=== PATIENT | female | born 1995 | race Caucasian/White ===

== ENCOUNTER 2018-11-16 02:33 | Emergency (ER) | payer OTHER, SELFPAY ==
[2018-11-16 02:54] VITALS: BP 119/74; PULSE 109; RESP 16; TEMP 36.7; O2SAT 100
--- NOTE | 2018-11-16 02:58 | ED.NAVMDI ---
HPI - Nausea/Vomiting/Diarrhea General Chief complaint: Nausea/Vomiting/Diarrhea Stated complaint: Vomiting Time Seen by Provider: 11/16/18 02:40 Source: patient Mode of arrival: ambulatory Limitations: no limitations History of Present Illness HPI Narrative: The patient has a breast-fed baby. Both became ill about 8:00 p.m. tonight. The patient developed nausea and vomiting, vomiting so frequently that she cannot tell me how often she has vomited. Her baby started vomiting about the same time. Her is here, with mild nausea but no vomiting. They all ate the same, nothing that seems have obviously made people sick. The patient has had no fever chills, she has had no diarrhea. She has mild abdominal discomfort. There is no associated back pain or dysuria. She has no ENT complaints. She has no cough or congestion. She is generally healthy. Related Data Home Medications Medication Instructions Recorded Confirmed LEVOTHYROXINE SODIUM (SYNTHROID) 0.125 mg PO QDAY #0 11/12/12 cetirizine 10 mg tablet 10 mg PO DAILY 03/17/18 03/17/18 Previous Rx's Medication Instructions Recorded [ Rx 1] 1 tab PO QDAY #0 12/12/17 ondansetron 4 mg PO Q4H #14 tab 11/16/18 Allergies Allergy/AdvReac Type Severity Reaction Status Date / Time amoxicillin [AMOXICILLIN] Allergy Unknown Unverified 01/28/18 12:14 clavulanic acid Allergy Unknown Unverified 01/28/18 12:14 [From AUGMENTIN] erythromycin base Allergy Unknown Unverified 01/28/18 12:14 [ERYTHROMYCIN BASE] iodine [IODINE] Allergy Unknown Unverified 01/28/18 12:14 Review of Systems Review of Systems ROS Unobtainable: All systems reviewed & are unremarkable except as noted in HPI and below Constitutional Denies chills, Denies fever(s), Denies lethargy and Denies weakness ENT Ears, Nose, Mouth, and Throat: Denies neck pain and Denies sore throat Cardiovascular Denies chest pain, Denies lightheadedness, Denies palpitations, Denies dyspnea and Denies dyspnea on exertion Respiratory Denies cough, Denies dyspnea, Denies dyspnea on exertion and Denies wheezing Gastrointestinal Gastrointestinal: Reports abdominal pain (Minimal), Denies diarrhea, Reports nausea and Reports vomiting Genitourinary Denies dysuria and Reports other (She is not ) Musculoskeletal Denies back pain and Denies neck pain Integumentary/Breasts Denies pruritus, Denies erythema and Denies rash Neurologic Denies weakness Psychiatric Denies anxiety and Denies depression Endocrine Denies palpitations Allergic/Immunologic Denies wheezing PFSH Medical History Hypothyroidism (Acute) Surgical History Status post tonsillectomy and adenoidectomy Social History Smoking Status: Never smoker Exam Initial Vital Signs Initial Vital Signs: Vital Signs Temperature 98.0 F 11/16/18 02:54 Pulse Rate 109 H 11/16/18 02:54 Respiratory Rate 16 11/16/18 02:54 Blood Pressure 119/74 11/16/18 02:54 Pulse Oximetry 100 11/16/18 02:54 Const General: cooperative and well developed Nutritional Appearance: well nourished Orientation: alert, awake, oriented x3 and not confused HENNM Mouth: oral mucosae normal, lip normal and tongue normal Eyes Conjunctivae: conjunctivae normal Neck Neck: full ROM and No lymphadenopathy Chest Chest: normal inspection of the chest Resp Effort & Inspection: normal respiratory effort, able to speak in complete sentences, no respiratory distress and no use of accessory muscles Auscultation: clear to auscultation bilaterally, no rales, no rhonchi and no wheezes Cardio Rate: regular rate Rhythm: regular rhythm Heart Sounds: no click, no gallops, no murmurs and no rubs Pulses: normal peripheral pulses GI Inspection: non-distended Palpation: soft, no hepatosplenomegaly, No guarding, No pulsatile mass and No tender Auscultation: normal bowel sounds Back/Spine/Pelvis Back: No CVA tenderness Skin General: no rashes or lesions noted Neuro General: alert, oriented x3, gait normal and no focal motor deficits Speech: speech normal Extrem General: full ROM, no clubbing, cyanosis or edema, no pedal edema and no calf tenderness Course Orders Ordered: Discontinued Medications Acetaminophen (Tylenol) 650 mg PO NOW ONE Stop: 11/16/18 03:00 Last Admin: 11/16/18 03:25 Dose: 650 mg Ondansetron HCl (Zofran Odt) 4 mg SL NOW ONE Stop: 11/16/18 02:58 Last Admin: 11/16/18 03:00 Dose: 4 mg Vital Signs - 8 hr 11/16/18 02:54 11/16/18 03:25 Temperature 98.0 F 98.0 F Pulse Rate 109 H Respiratory Rate 16 Blood Pressure 119/74 Pulse Oximetry 100 Discharge Plan Departure Patient Disposition: Home Clinical Impression: Vomiting Instructions: DI for Vomiting -- Adult Activity Restrictions/Additional Instructions: Zofran every 4 hr as needed for nausea Cp small amounts of fluids, increase her fluid intake as tolerated. Resume a normal diet when tolerated. Return here as necessary. Prescriptions: New ondansetron 4 mg tablet,disintegrating 4 mg PO Q4H Qty: 14 RF: 0 No Action cetirizine [Zyrtec] 10 mg tablet 10 mg PO DAILY RF: 0 LEVOTHYROXINE SODIUM (SYNTHROID) 0.125 mg PO QDAY Qty: 0 RF: 0 [ Rx 1] 1 tab PO QDAY Qty: 0 RF: 0
[2018-11-16] MEDS: ONDANSETRON 4 MG ODT SL (03:00)
[2018-11-16 03:25] VITALS: TEMP 36.7
[2018-11-16] MEDS: ACETAMINOPHEN 325 MG TABLET 650 MG PO (03:25)
[2018-11-16 04:30] VITALS: BP 104/69; PULSE 98; RESP 16; TEMP 36.8; O2SAT 98
== END 2018-11-16 04:25 | disposition home or self-care (01) ==
PROVIDERS: Emergency Provider Emergency Medicine; PCP Family Medicine
DX: R11.10 Vomiting, unspecified (principal)
CPT/HCPCS: 99282; 99283